=== PATIENT | female | born 1935 | race African-American/Black ===

== ENCOUNTER 2018-09-24 23:26 | Emergency (ER) | payer MEDICARE, BC ==
[~2018-09-24 23:26] MED LIST: Iopamidol 370 76% 100 ML VIAL ONE
[2018-09-25 00:59] LABS: #Basophils 0.1 thou/uL (0.0-0.2); #Lymphocytes 1.2 thou/uL (1.20-3.40); #Monocytes 0.7 thou/uL (0.11-0.59); #Neutrophils 4.9 thou/uL (1.40-6.50); %Basophils 0.7 % (0.0-1.0); %Eosinophils 0.3 % (0.0-10.0); %Lymphocytes 17.7 % (21.0-51.0); %Monocytes 10.2 % (0.0-10.0); Hemoglobin 12.9 g/dL (12.0-16.0); Mean Corpuscular HGB CONC 30.7 g/dL (32.0-36.0); Mean Corpuscular Hemoglobin 26.2 pg (27.0-31.0); Mean Corpuscular Volume 85.2 fL (78.0-98.0); Platelet Count 296 thou/uL (130-400); RBC Distribution Width 13.8 % (11.5-14.5); Red Blood Cell (RBC) Count 4.94 mill/uL (4.20-5.40)
[2018-09-25 01:08] LABS: ALT (SGPT) 17 U/L (8-55); AST (SGOT) 16 U/L (5-34); Alkaline Phosphatase 88 U/L (40-150); Anion Gap 13 mmol/L (10-20); BUN (Urea Nitrogen) 15 mg/dL (9.8-20.1); Bilirubin, Total 0.4 mg/dL (0.2-1.2); Calc. Creatinine Clearance 0 mL/min (70-130); Calcium 10.4 mg/dL (7.8-10.44); Carbon Dioxide 27 mmol/L (23-31); Chloride 99 mmol/L (98-107); Estimated GFR-MDRD 71; Globulin 3.9 g/dL (2.4-3.5); Glucose 109 mg/dL (83-110); Protein, Total 7.9 g/dL (6.0-8.3); Sodium 135 mmol/L (136-145)
[2018-09-25] MEDS ORDERED: predniSONE 20 MG TAB ONE ×2 (02:44)
--- NOTE | 2018-09-25 08:10 | CT ---
PRELIMINARY REPORT/[facility]/EMERGENTY AFTER-HOURS PROCEDURE CT Chest With Contrast EXAM DATE/TIME: 09/25/2018 1:27 AM CLINICAL HISTORY: 83 years old, female; Signs and symptoms; Shortness of breath and other: Choking sensation; Patient H X: C/O cough and congestion for the past month, after having esophagus dilated. States the phlegm cut s the air off. ; Additional info: R/O esophageal mass TECHNIQUE: Axial computed tomography images of the chest with intravenous contrast. All CT scans at this facility use at least one of these dose optimization techniques: automated expos ure control; mA and/or kV adjustment per patient size (includes targeted exams where dose is matched to clinical indication); or iterative reconstruction. Coronal and sagittal reformatted images were cr eated and reviewed. CONTRAST: 96 ml of ISOVUE 370 administered intravenously. COMPARISON: No relevant prior studies available. FINDINGS: Thyroid: The thyroid gland is normal. Lungs: There is a pulmonary parenchymal calcification consistent with remote granulomatous organism e xposure. There is atelectasis at the LEFT lung base. Pleural space: Normal. No pneumothorax. No pleural effusion. Heart: The cardiac structures are normal. Mediastinum: The trachea is normal. A small hiatal hernia is present. No CT evidence of obstructive e sophageal mass. Aorta: Normal. No aortic aneurysm. Lymph nodes: Unremarkable. No enlarged lymph nodes. Bones/joints: The spine demonstrates mild to moderate degenerative changes at multiple levels. Soft tissues: Unremarkable. Upper abdomen: There is LEFT hemidiaphragm elevation. IMPRESSION: No CT evidence of obstructive esophageal mass. Fluoroscopy swallow exam may be performed if clinicall y warranted. Thank you for allowing us to participate in the care of your patient. Dictated and Authenticated by: Lai Sinha MD 09/25/2018 2:28 AM Central Time ([place] & [place]) FINAL REPORT CT CHEST WITH IV CONTRAST PERFORMED ON AN EMERGENCY BASIS: Date: 09/25/18 Time: 0134 hours HISTORY: Chest pain after esophageal dilatation. FINDINGS: Findings agree with the preliminary report by Michael. No evidence of esophageal rupture or mass/obstruc tion. Calcified granulomata are consistent with healed granulomatous disease. Atherosclerosis. POS: [facility]
== END 2018-09-25 02:55 | disposition home or self-care (01) ==
LOC: NAV ERS 23:26
DX: R05 Cough (principal); R09.81 Nasal congestion; I10 Essential (primary) hypertension; Z79.899 Other long term (current) drug therapy; Z79.82 Long term (current) use of aspirin
CPT/HCPCS: 71260; 80053; 83880; 84484; 85025; 93005; J7506

== ENCOUNTER 2018-10-29 12:30 | Emergency (ER) | payer MEDICARE, BC ==
[2018-10-29 13:44] LABS: #Basophils 0.1 thou/uL (0.0-0.2); #Lymphocytes 1.1 thou/uL (1.20-3.40); #Monocytes 0.6 thou/uL (0.11-0.59); #Neutrophils 4.3 thou/uL (1.40-6.50); %Basophils 0.9 % (0.0-1.0); %Eosinophils 0.5 % (0.0-10.0); %Lymphocytes 18.2 % (21.0-51.0); %Monocytes 9.6 % (0.0-10.0); %Neutrophils 70.7 % (42.0-75.0); Hemoglobin 12.3 g/dL (12.0-16.0); Mean Corpuscular HGB CONC 31.4 g/dL (32.0-36.0); Mean Corpuscular Hemoglobin 26.9 pg (27.0-31.0); Mean Corpuscular Volume 85.7 fL (78.0-98.0); Mean Platelet Volume 7.4 fL (7.4-10.4); Platelet Count 317 thou/uL (130-400); RBC Distribution Width 14.1 % (11.5-14.5); Red Blood Cell (RBC) Count 4.59 mill/uL (4.20-5.40)
[2018-10-29 14:05] LABS: ALT (SGPT) 18 U/L (8-55); AST (SGOT) 19 U/L (5-34); Albumin 3.8 g/dL (3.4-4.8); Alkaline Phosphatase 79 U/L (40-150); Anion Gap 12 mmol/L (10-20); BUN (Urea Nitrogen) 9 mg/dL (9.8-20.1); Bilirubin, Total 0.5 mg/dL (0.2-1.2); CK (CPK) 103 U/L (29-168); Calc. Creatinine Clearance 0 mL/min (70-130); Calcium 9.9 mg/dL (7.8-10.44); Carbon Dioxide 25 mmol/L (23-31); Chloride 104 mmol/L (98-107); Estimated GFR-MDRD 88; Globulin 3.1 g/dL (2.4-3.5); Glucose 101 mg/dL (83-110); Potassium 4.6 mmol/L (3.5-5.1); Protein, Total 6.9 g/dL (6.0-8.3); Sodium 136 mmol/L (136-145)
[2018-10-29 14:08] LABS: Bilirubin Negative (Negative); Blood, Urine Negative (Negative); Clarity Clear (Clear); Glucose, Urine (Dipstick) Negative (Negative); Leukocyte Negative (Negative); Nitrite Negative (Negative); Protein, Urine (Dipstick) Negative (Neg-Trace); Urobilinogen 0.2 mg/dL (0.2-1.0)
--- NOTE | 2018-10-29 14:14 | RAD ---
PORTABLE CHEST 1 VIEW: Date: 10/29/18 Time: 1321 hours HISTORY: Syncope. FINDINGS: Comparison made with exam of 09/01/15. The heart size is prominent, but stable. No focal areas of consolidation, pneumothoraces, delbert pulmo nary edema, or pleural effusions are seen. IMPRESSION: No acute process. POS: [facility]
== END 2018-10-29 15:20 | disposition home or self-care (01) ==
LOC: NAV ERS 12:30
DX: R53.1 Weakness (principal); I10 Essential (primary) hypertension; K21.9 Gastro-esophageal reflux disease without esophagitis; Z79.899 Other long term (current) drug therapy; Z79.82 Long term (current) use of aspirin
CPT/HCPCS: 71045; 80053; 81003; 82550; 84484; 85025; 93005